=== PATIENT | female | born 1965 | race Caucasian/White ===

== ENCOUNTER 2023-12-04 07:36 | Inpatient (IN) | payer BC, OTHER ==
[~2023-12-04] VITALS: Ht 167.6 cm; Wt 90.0 kg
[2023-12-04 09:37] LABS: ALANINE AMINOTRANSFERASE 552 U/L (12-78); ALKALINE PHOSPHATASE 249 IU/L (46-116); AMYLASE 18 U/L (25-115); ASPARTATE AMINO TRANSFERASE 473 U/L (10-37); BILIRUBIN,TOTAL 6.4 MG/DL (0.1-1.0); BLOOD UREA NITROGEN 5 MG/DL (7-18); BUN/CREATININE RATIO 11.1 (10.0-20.0); CALCIUM 9.1 MG/DL (8.5-10.1); CHLORIDE 84 MMOL/L (99-107); CREATININE 0.45 MG/DL (0.40-0.90); ETHANOL 65 MG/DL (<10); GLUCOSE 106 MG/DL (70-104); LIPASE 41 U/L (16-77); eCRCL 124 ML/MIN; eGFR > 90 ML/MIN
[2023-12-04 09:44] LABS: ALBUMIN/GLOBULIN RATIO 0.8 (1.1-1.5); ANION GAP 11 (8-16); POTASSIUM 3.8 MMOL/L (3.5-5.1)
[2023-12-04 09:46] LABS: SODIUM 119 MMOL/L (135-145)
[2023-12-04 10:45] LABS: BASOPHILS % (AUTO) 0.4 % (0-1); EOSINOPHILS % (AUTO) 0.7 % (0-6); HEMATOCRIT 41.3 % (35.0-45.0); HEMOGLOBIN 14.4 g/dl (12.0-16.0); LYMPHOCYTES # (AUTO) 1.7 X10'3 (1.1-4.8); LYMPHOCYTES % (AUTO) 25.3 % (21-51); MEAN CORPUSCULAR HEMOGLOBIN 31.9 PG (27.0-31.0); MEAN CORPUSCULAR HGB CONC 34.8 g/dL (33.0-36.5); MEAN CORPUSCULAR VOLUME 91.6 FL (78-98); MEAN PLATELET VOLUME 8.1 FL (7.4-10.4); MONOCYTES # (AUTO) 0.6 X10'3 (0-0.9); MONOCYTES % (AUTO) 8.6 % (2-12); NEUTROPHILS # (AUTO) 4.3 X10'3 (1.8-7.7); PLATELET COUNT 166 X10'3 (140-440); RED BLOOD COUNT 4.51 X10'6 (4.20-5.60); RED CELL DISTRIBUTION WIDTH 13.3 % (11.5-14.5); WHITE BLOOD COUNT 6.7 X10'3 (4.5-11.0)
[2023-12-04 11:48] LABS: MAGNESIUM 1.6 MG/DL (1.5-2.4)
[2023-12-04] MEDS: LORazepam 2 mg/ml vial IV ONE (12:37)
[2023-12-04] MEDS: thiamine 100mg/ml 2ml inj. IV ONE (12:37)
[2023-12-04] MEDS: ondansetron/PF 4mg/2ml inj IV ONE (12:37)
[2023-12-04] MEDS: normal saline 1000ml 1,000 ML IV ONE (12:37)
[2023-12-04 12:46] LABS: BILIRUBIN,URINE NEGATIVE (Neg); CLARITY,URINE SLIGHTLY CLOUDY (Clear); COLOR,URINE YELLOW (Yellow); GLUCOSE, URINE NEGATIVE (Neg); KETONES,URINE NEGATIVE (Neg); LEUKOCYTE ESTERASE ,URINE NEGATIVE (Neg); NITRITES, URINE NEGATIVE (Neg); OCCULT BLOOD,URINE TRACE-INTACT (Neg); PROTEIN,URINE NEGATIVE (Neg); UROBILINOGEN,URINE 0.2 E.U/dL (0.2-1.0)
[2023-12-04 12:47] LABS: UA COLLECTION TYPE CLN CATCH MIDSTREAM
[2023-12-04 12:53] LABS: BACTERIA,URINE NONE SEEN /HPF (Neg); RBC,URINE 0-2 /HPF (0-2); SQUAMOUS EPITHELIAL CELL,UR FEW /LPF (FEW); WBC,URINE NONE SEEN /HPF (0-4)
[2023-12-04] MEDS: folic acid 1mg/0.2ml inj IV ONE (13:01)
[2023-12-04 13:09] LABS: APTT 29 SECONDS (22-32); INR 1.3 INR; PROTHROMBIN TIME 13.4 SECONDS (9.0-12.0)
[2023-12-04] MEDS ORDERED: haloperidol lactate 5mg/ml inj IM PRN (13:45)
[2023-12-04] MEDS ORDERED: magnesium 2GM in 50ml NS 50 ML IV PRN (13:45)
[2023-12-04] MEDS ORDERED: haloperidol 5mg tablet PO PRN (13:45)
[2023-12-04] MEDS ORDERED: magnesium 4gm in 100ml NS 100 ML IV PRN (13:45)
[2023-12-04] MEDS ORDERED: magnesium hydroxide 30ml (MOM) UD suspension PO PRN (13:45)
[2023-12-04] MEDS ORDERED: acetaminophen 325mg tablet PO PRN (13:45)
[2023-12-04] MEDS ORDERED: potassium Cl 40MEQ/1/2NS 520ml 520 ML IV PRN (13:45)
[2023-12-04] MEDS ORDERED: potassium Cl 20 mEq SR tablet PO PRN ×2 (13:45)
[2023-12-04] MEDS ORDERED: ondansetron/PF 4mg/2ml inj IV PRN (13:45)
[2023-12-04] MEDS ORDERED: mag hydrox/Alum hydrox/simeth 30ml oral suspension PO PRN (13:45)
[2023-12-04] MEDS ORDERED: HYDROcodone/acetaminophen 5mg/325mg tablet PO PRN (13:45)
[2023-12-04] MEDS ORDERED: morphine 2 MG/ML inj. syringe IV PRN ×2 (13:45)
[2023-12-04 15:48] LABS: ALBUMIN 2.9 G/DL (3.4-5.0); ANION GAP 12 (8-16); BLOOD UREA NITROGEN 4 MG/DL (7-18); BUN/CREATININE RATIO 7.1 (10.0-20.0); CALCIUM 8.3 MG/DL (8.5-10.1); CHLORIDE 86 MMOL/L (99-107); CREATININE 0.56 MG/DL (0.40-0.90); GLUCOSE 112 MG/DL (70-104); TOTAL CARBON DIOXIDE 21.5 MMOL/L (24-32); eCRCL 100 ML/MIN; eGFR > 90 ML/MIN
[2023-12-04 15:51] LABS: POTASSIUM 4.6 MMOL/L (3.5-5.1); SODIUM 119 MMOL/L (135-145)
[2023-12-04] MEDS: heparin, porcine 5000 units/ml vial SQ SCH (16:00)
[2023-12-04 17:15] VITALS: BP 127/70; PULSE 112; RESP 18; TEMP 98.2; O2SAT 94
[2023-12-04] MEDS: normal saline 1000ml 1,000 ML IV SCH (19:46)
[2023-12-04] MEDS: docusate sod 100mg capsule PO SCH (19:56)
[2023-12-04] MEDS: LORazepam 2 mg/ml vial IV PRN (19:59)
[2023-12-04 20:00] VITALS: RESP 16; O2SAT 98
[2023-12-04] MEDS: thiamine 100mg tablet PO SCH (20:00)
[2023-12-04] MEDS: K and/or MAG REPLACEMENT MC SCH (20:00)
[2023-12-04 22:00] VITALS: BP 114/59; PULSE 102; RESP 15; TEMP 97.9; O2SAT 98
[2023-12-05] MEDS ORDERED: TELM40TA8 PO (02:44)
[2023-12-05 06:00] VITALS: BP 149/79; PULSE 97; RESP 15; TEMP 97.9; O2SAT 98
[2023-12-05 06:52] LABS: BASOPHILS % (AUTO) 0.8 % (0-1); EOSINOPHILS # (AUTO) 0.1 X10'3 (0-0.9); EOSINOPHILS % (AUTO) 2.1 % (0-6); HEMATOCRIT 33.3 % (35.0-45.0); HEMOGLOBIN 11.8 g/dl (12.0-16.0); LYMPHOCYTES # (AUTO) 1.5 X10'3 (1.1-4.8); LYMPHOCYTES % (AUTO) 30.1 % (21-51); MEAN CORPUSCULAR HEMOGLOBIN 32.5 PG (27.0-31.0); MEAN CORPUSCULAR HGB CONC 35.3 g/dL (33.0-36.5); MEAN PLATELET VOLUME 7.8 FL (7.4-10.4); MONOCYTES # (AUTO) 0.4 X10'3 (0-0.9); MONOCYTES % (AUTO) 9.2 % (2-12); NEUTROPHILS # (AUTO) 2.8 X10'3 (1.8-7.7); NEUTROPHILS % (AUTO) 57.8 % (42-75); PLATELET COUNT 132 X10'3 (140-440); RED BLOOD COUNT 3.62 X10'6 (4.20-5.60); RED CELL DISTRIBUTION WIDTH 13.5 % (11.5-14.5); WHITE BLOOD COUNT 4.8 X10'3 (4.5-11.0)
[2023-12-05 06:56] LABS: INR 1.2 INR; PROTHROMBIN TIME 13.1 SECONDS (9.0-12.0)
[2023-12-05 07:06] LABS: ALANINE AMINOTRANSFERASE 340 U/L (12-78); ALBUMIN 2.3 G/DL (3.4-5.0); ALKALINE PHOSPHATASE 199 IU/L (46-116); ANION GAP 6 (8-16); ASPARTATE AMINO TRANSFERASE 292 U/L (10-37); BILIRUBIN,TOTAL 6.2 MG/DL (0.1-1.0); BLOOD UREA NITROGEN 5 MG/DL (7-18); BUN/CREATININE RATIO 9.4 (10.0-20.0); CALCIUM 7.6 MG/DL (8.5-10.1); CHLORIDE 93 MMOL/L (99-107); CREATININE 0.53 MG/DL (0.40-0.90); GLUCOSE 102 MG/DL (70-104); LIPASE 50 U/L (16-77); MAGNESIUM 1.6 MG/DL (1.5-2.4); POTASSIUM 3.7 MMOL/L (3.5-5.1); SODIUM 125 MMOL/L (135-145); TOTAL CARBON DIOXIDE 25.9 MMOL/L (24-32); eCRCL 106 ML/MIN; eGFR > 90 ML/MIN
[2023-12-05 07:10] LABS: ALBUMIN/GLOBULIN RATIO 0.7 (1.1-1.5); PHOSPHORUS 3.7 MG/DL (2.3-4.5); TOTAL PROTEIN 5.5 G/DL (6.4-8.2)
[2023-12-05 10:00] VITALS: BP 123/75; PULSE 100; RESP 18; TEMP 97.9; O2SAT 95
[2023-12-05 15:58] LABS: ALBUMIN 2.5 G/DL (3.4-5.0); ANION GAP 5 (8-16); BLOOD UREA NITROGEN 3 MG/DL (7-18); CALCIUM 7.6 MG/DL (8.5-10.1); CHLORIDE 91 MMOL/L (99-107); GLUCOSE 100 MG/DL (70-104); TOTAL CARBON DIOXIDE 24.3 MMOL/L (24-32); eCRCL 112 ML/MIN; eGFR > 90 ML/MIN
[2023-12-05 16:05] LABS: POTASSIUM 4.1 MMOL/L (3.5-5.1)
[2023-12-05 16:07] LABS: SODIUM 120 MMOL/L (135-145)
[2023-12-05] MEDS ORDERED: sodium chloride 3% IV.soln 100 ML IV SCH ×2 (17:10→18:00)
[2023-12-05] MEDS ORDERED: sodium chloride 3% IV.soln 150 ML IV SCH (17:27)
[2023-12-05 18:00] VITALS: BP 130/79; PULSE 94; RESP 16; TEMP 97.7; O2SAT 99
[2023-12-05 20:00] VITALS: RESP 16; O2SAT 100
[2023-12-05 22:00] VITALS: BP 131/75; PULSE 96; RESP 16; TEMP 98; O2SAT 97
[2023-12-05 23:39] VITALS: BP 134/78; PULSE 87; RESP 20; O2SAT 100
[2023-12-06] VITALS (22 sets, daily range): BP systolic 106–147; BP diastolic 63–93; PULSE 76–118; RESP 12–25; TEMP 97.9; O2SAT 94–99
[2023-12-06] MEDS: sodium chloride 3% IV.soln 100 ML IV SCH (00:11)
[2023-12-06 00:43] LABS: ALANINE AMINOTRANSFERASE 312 U/L (12-78); ALBUMIN 2.7 G/DL (3.4-5.0); ALKALINE PHOSPHATASE 223 IU/L (46-116); ANION GAP 5 (8-16); ASPARTATE AMINO TRANSFERASE 248 U/L (10-37); BILIRUBIN,TOTAL 5.2 MG/DL (0.1-1.0); BLOOD UREA NITROGEN 4 MG/DL (7-18); BUN/CREATININE RATIO 7.8 (10.0-20.0); CALCIUM 7.8 MG/DL (8.5-10.1); CHLORIDE 89 MMOL/L (99-107); CREATININE 0.51 MG/DL (0.40-0.90); GLUCOSE 97 MG/DL (70-104); POTASSIUM 3.6 MMOL/L (3.5-5.1); TOTAL CARBON DIOXIDE 26.1 MMOL/L (24-32); eCRCL 110 ML/MIN; eGFR > 90 ML/MIN
[2023-12-06 00:44] LABS: ALBUMIN/GLOBULIN RATIO 0.8 (1.1-1.5); TOTAL PROTEIN 6.3 G/DL (6.4-8.2)
[2023-12-06 00:55] LABS: SODIUM 120 MMOL/L (135-145)
[2023-12-06 05:49] LABS: BASOPHILS # (AUTO) 0.1 X10'3 (0-0.2); BASOPHILS % (AUTO) 1.8 % (0-1); EOSINOPHILS # (AUTO) 0.2 X10'3 (0-0.9); EOSINOPHILS % (AUTO) 5.1 % (0-6); HEMATOCRIT 32.1 % (35.0-45.0); HEMOGLOBIN 11.1 g/dl (12.0-16.0); LYMPHOCYTES # (AUTO) 1.5 X10'3 (1.1-4.8); LYMPHOCYTES % (AUTO) 36.4 % (21-51); MEAN CORPUSCULAR HGB CONC 34.7 g/dL (33.0-36.5); MEAN CORPUSCULAR VOLUME 92.1 FL (78-98); MEAN PLATELET VOLUME 7.6 FL (7.4-10.4); MONOCYTES # (AUTO) 0.4 X10'3 (0-0.9); NEUTROPHILS % (AUTO) 47.7 % (42-75); PLATELET COUNT 119 X10'3 (140-440); RED BLOOD COUNT 3.48 X10'6 (4.20-5.60); RED CELL DISTRIBUTION WIDTH 13.7 % (11.5-14.5); WHITE BLOOD COUNT 4.1 X10'3 (4.5-11.0)
[2023-12-06 05:51] LABS: INR 1.2 INR; PROTHROMBIN TIME 12.4 SECONDS (9.0-12.0)
[2023-12-06 05:57] LABS: ALANINE AMINOTRANSFERASE 280 U/L (12-78); ALBUMIN 2.5 G/DL (3.4-5.0); ALKALINE PHOSPHATASE 191 IU/L (46-116); ANION GAP 7 (8-16); ASPARTATE AMINO TRANSFERASE 225 U/L (10-37); BILIRUBIN,TOTAL 4.1 MG/DL (0.1-1.0); BLOOD UREA NITROGEN 4 MG/DL (7-18); BUN/CREATININE RATIO 7.8 (10.0-20.0); CHLORIDE 98 MMOL/L (99-107); CREATININE 0.51 MG/DL (0.40-0.90); GLUCOSE 98 MG/DL (70-104); LIPASE 36 U/L (16-77); MAGNESIUM 1.8 MG/DL (1.5-2.4); POTASSIUM 3.8 MMOL/L (3.5-5.1); SODIUM 130 MMOL/L (135-145); eCRCL 110 ML/MIN; eGFR > 90 ML/MIN
[2023-12-06 06:03] LABS: ALBUMIN/GLOBULIN RATIO 0.7 (1.1-1.5); PHOSPHORUS 4.1 MG/DL (2.3-4.5); TOTAL PROTEIN 5.9 G/DL (6.4-8.2)
[2023-12-06] MEDS: desmopressin 4 MCG/1 ML amp IV ONE (06:25)
[2023-12-06] MEDS: dextrose 5%-water 1,000 ML IV SCH (06:25)
[2023-12-06 09:14] LABS: THYROID STIMULATING HORMONE 3.85 ulU/ml (0.34-4.50)
[2023-12-06] MEDS: multivitamins, therapeutics tablet PO SCH (11:23)
[2023-12-06] MEDS: folic acid 1mg tablet PO SCH (11:23)
[2023-12-06 11:49] LABS: ALBUMIN 2.4 G/DL (3.4-5.0); ANION GAP 9 (8-16); BLOOD UREA NITROGEN 4 MG/DL (7-18); BUN/CREATININE RATIO 6.3 (10.0-20.0); CHLORIDE 94 MMOL/L (99-107); CREATININE 0.64 MG/DL (0.40-0.90); GLUCOSE 153 MG/DL (70-104); HDL CHOLESTEROL 14 MG/DL (35-60); LDL CHOLESTEROL 89 MG/DL (50-100); SODIUM 126 MMOL/L (135-145); TOTAL CARBON DIOXIDE 23.1 MMOL/L (24-32); eCRCL 88 ML/MIN; eGFR > 90 ML/MIN
[2023-12-06 12:40] LABS: CHOL/HDL RATIO 10.4 (0.00-4.99); CHOLESTEROL 146 MG/DL (0-200); TRIGLYCERIDES 213 MG/DL (20-135)
[2023-12-06] MEDS ORDERED: LORazepam 2 mg/ml vial IV PRN (13:45)
[2023-12-06] MEDS ORDERED: MULT-1085 PO (17:07)
[2023-12-06] MEDS ORDERED: MELA5TAB66 PO (17:07)
[2023-12-06] MEDS ORDERED: VITA1CAP PO (17:07)
[2023-12-06] MEDS ORDERED: CHOL500044 PO (17:07)
[2023-12-06] MEDS ORDERED: FLUT16SP2 BOTHNARES (17:07)
[2023-12-06] MEDS ORDERED: BUDE10.2 PO (17:07)
[2023-12-06 18:27] LABS: ALBUMIN 2.9 G/DL (3.4-5.0); ANION GAP 9 (8-16); BLOOD UREA NITROGEN 7 MG/DL (7-18); BUN/CREATININE RATIO 11.7 (10.0-20.0); CALCIUM 8.3 MG/DL (8.5-10.1); CHLORIDE 90 MMOL/L (99-107); GLUCOSE 116 MG/DL (70-104); POTASSIUM 4.1 MMOL/L (3.5-5.1); SODIUM 124 MMOL/L (135-145); TOTAL CARBON DIOXIDE 25.2 MMOL/L (24-32); eCRCL 93 ML/MIN; eGFR > 90 ML/MIN
[2023-12-07] VITALS (9 sets, daily range): BP systolic 140–146; BP diastolic 78–88; PULSE 83–103; RESP 12–18; TEMP 97.8–98.9; O2SAT 94–99
[2023-12-07] MEDS: normal saline 1000ml 1,000 ML IV ONE (00:46)
[2023-12-07] MEDS: LORazepam 1 MG tablet PO PRN (00:53)
[2023-12-07 06:34] LABS: BASOPHILS % (AUTO) 0.7 % (0-1); EOSINOPHILS # (AUTO) 0.2 X10'3 (0-0.9); EOSINOPHILS % (AUTO) 2.9 % (0-6); HEMATOCRIT 30.2 % (35.0-45.0); HEMOGLOBIN 10.8 g/dl (12.0-16.0); LYMPHOCYTES # (AUTO) 1.7 X10'3 (1.1-4.8); LYMPHOCYTES % (AUTO) 31.4 % (21-51); MEAN CORPUSCULAR HEMOGLOBIN 32.7 PG (27.0-31.0); MEAN CORPUSCULAR HGB CONC 35.7 g/dL (33.0-36.5); MEAN CORPUSCULAR VOLUME 91.5 FL (78-98); MEAN PLATELET VOLUME 7.8 FL (7.4-10.4); MONOCYTES # (AUTO) 0.4 X10'3 (0-0.9); MONOCYTES % (AUTO) 7.7 % (2-12); NEUTROPHILS # (AUTO) 3.1 X10'3 (1.8-7.7); NEUTROPHILS % (AUTO) 57.3 % (42-75); PLATELET COUNT 105 X10'3 (140-440); RED CELL DISTRIBUTION WIDTH 13.2 % (11.5-14.5); WHITE BLOOD COUNT 5.4 X10'3 (4.5-11.0)
[2023-12-07 07:07] LABS: ALANINE AMINOTRANSFERASE 217 U/L (12-78); ALBUMIN 2.5 G/DL (3.4-5.0); ALBUMIN/GLOBULIN RATIO 0.7 (1.1-1.5); ALKALINE PHOSPHATASE 175 IU/L (46-116); ANION GAP 7 (8-16); ASPARTATE AMINO TRANSFERASE 144 U/L (10-37); BILIRUBIN,TOTAL 3.1 MG/DL (0.1-1.0); BLOOD UREA NITROGEN 5 MG/DL (7-18); BUN/CREATININE RATIO 11.6 (10.0-20.0); CALCIUM 7.6 MG/DL (8.5-10.1); CHLORIDE 88 MMOL/L (99-107); CREATININE 0.43 MG/DL (0.40-0.90); GLUCOSE 97 MG/DL (70-104); LIPASE 45 U/L (16-77); MAGNESIUM 1.5 MG/DL (1.5-2.4); PHOSPHORUS 3.5 MG/DL (2.3-4.5); POTASSIUM 3.7 MMOL/L (3.5-5.1); TOTAL CARBON DIOXIDE 22.7 MMOL/L (24-32); eCRCL 130 ML/MIN; eGFR > 90 ML/MIN
[2023-12-07 07:09] LABS: INR 1.1 INR; PROTHROMBIN TIME 11.9 SECONDS (9.0-12.0)
[2023-12-07 07:10] LABS: SODIUM 118 MMOL/L (135-145)
[2023-12-07] MEDS: normal saline 1000ml 1,000 ML IV SCH (07:40)
[2023-12-07] MEDS: furosemide 40mg/4ml inj IV ONE (09:07)
[2023-12-07] MEDS: budesonide 0.5mg/2ml UD nebule IH SCH (12:44)
[2023-12-07] MEDS: albuterol 2.5 MG/3 ML nebule NEB PRN (12:45)
[2023-12-08 02:00] VITALS: BP 133/77; PULSE 83; RESP 16; TEMP 98.2; O2SAT 86
[2023-12-08 05:45] LABS: BASOPHILS % (AUTO) 0.6 % (0-1); EOSINOPHILS # (AUTO) 0.1 X10'3 (0-0.9); EOSINOPHILS % (AUTO) 2.1 % (0-6); HEMATOCRIT 32.1 % (35.0-45.0); HEMOGLOBIN 11.1 g/dl (12.0-16.0); LYMPHOCYTES # (AUTO) 1.8 X10'3 (1.1-4.8); LYMPHOCYTES % (AUTO) 29.8 % (21-51); MEAN CORPUSCULAR HEMOGLOBIN 32.1 PG (27.0-31.0); MEAN CORPUSCULAR HGB CONC 34.7 g/dL (33.0-36.5); MEAN CORPUSCULAR VOLUME 92.7 FL (78-98); MEAN PLATELET VOLUME 7.9 FL (7.4-10.4); MONOCYTES # (AUTO) 0.4 X10'3 (0-0.9); MONOCYTES % (AUTO) 7.1 % (2-12); NEUTROPHILS # (AUTO) 3.5 X10'3 (1.8-7.7); NEUTROPHILS % (AUTO) 60.4 % (42-75); PLATELET COUNT 149 X10'3 (140-440); RED BLOOD COUNT 3.46 X10'6 (4.20-5.60); RED CELL DISTRIBUTION WIDTH 13.6 % (11.5-14.5); WHITE BLOOD COUNT 5.9 X10'3 (4.5-11.0)
[2023-12-08 05:58] LABS: PROTHROMBIN TIME 11.2 SECONDS (9.0-12.0)
[2023-12-08 06:00] VITALS: BP 153/86; PULSE 81; RESP 22; TEMP 98.3; O2SAT 96
[2023-12-08 06:12] LABS: ALANINE AMINOTRANSFERASE 186 U/L (12-78); ALBUMIN 2.6 G/DL (3.4-5.0); ALBUMIN/GLOBULIN RATIO 0.7 (1.1-1.5); ALKALINE PHOSPHATASE 163 IU/L (46-116); ANION GAP 7 (8-16); ASPARTATE AMINO TRANSFERASE 115 U/L (10-37); BILIRUBIN,TOTAL 2.2 MG/DL (0.1-1.0); BLOOD UREA NITROGEN 4 MG/DL (7-18); BUN/CREATININE RATIO 7.7 (10.0-20.0); CALCIUM 8.6 MG/DL (8.5-10.1); CHLORIDE 100 MMOL/L (99-107); CREATININE 0.52 MG/DL (0.40-0.90); GLUCOSE 94 MG/DL (70-104); LIPASE 57 U/L (16-77); PHOSPHORUS 4.9 MG/DL (2.3-4.5); SODIUM 134 MMOL/L (135-145); TOTAL CARBON DIOXIDE 26.7 MMOL/L (24-32); TOTAL PROTEIN 6.5 G/DL (6.4-8.2); eCRCL 108 ML/MIN; eGFR > 90 ML/MIN
[2023-12-08] MEDS: pneumococcal 23-VAL P-sac vacc 25 mcg/0.5ml vial IMVAC ONE (07:17)
[2023-12-08 07:24] VITALS: RESP 22; O2SAT 96
[2023-12-08 12:31] LABS: GAMMA GLUTAMLY TRANSPEPTIDASE 1459 IU/L (0-60)
[2023-12-08] MEDS ORDERED: LORazepam 1 MG tablet PO PRN (13:45)
[2023-12-08] MEDS ORDERED: LORazepam 2 mg/ml vial IV PRN (13:45)
[2023-12-08 17:57] LABS: HBSAG SCREEN Negative (Negative); HEPATITIS C VIRUS ANTIBODY Non Reactive (Non Reactive)
== END 2023-12-08 11:16 | disposition home or self-care (01) | DRG 433 ==
LOC: ER 07:38 → ED HOLD 13:50 → ORTHO 4S 17:20 → CICU 2S 12-05 23:20 → PCU 3S 12-06 19:22
PROVIDERS: ADMIT Family Medicine; ATTEND Family Medicine
DX: K70.10 Alcoholic hepatitis without ascites (principal); E87.1 Hypo-osmolality and hyponatremia; F10.939 Alcohol use, unspecified with withdrawal, unspecified; E11.9 Type 2 diabetes mellitus without complications; I10 Essential (primary) hypertension; E88.89 Other specified metabolic disorders; K76.9 Liver disease, unspecified; J45.909 Unspecified asthma, uncomplicated; Z80.1 Family history of malignant neoplasm of trachea, bronchus and lung; Y90.3 Blood alcohol level of 60-79 mg/100 ml; Z88.8 Allergy status to other drugs, medicaments and biological substances; Z88.1 Allergy status to other antibiotic agents; Z88.2 Allergy status to sulfonamides; Z88.0 Allergy status to penicillin; Z80.51 Family history of malignant neoplasm of kidney; Z90.710 Acquired absence of both cervix and uterus
CPT/HCPCS: 36415; 74176; 76700; 80048; 80053; 80061; 80320; 81001; 82103; 82140; 82150; 82570; 82948; 82977; 83690; 83735; 83930; 83935; 84100; 84295; 84300; 84443; 85025; 85610; 85730; 86803; 87081; 87340; 87522; 90732; 94640; 94760; 96374; 96375; 99285; G0378; J1940; J2060; J2405; J2597; J3411; J3490; J7030; J7070; J7131

== ENCOUNTER 2024-01-07 07:26 | Outpatient (CLI) | payer OTHER ==
[~2024-01-07 07:26] MED LIST: BUDE10.2 PO; CHOL500044 PO; FLUT16SP2 BOTHNARES; MELA5TAB66 PO; MULT-1085 PO; TELM40TA8 PO; VITA1CAP PO
[2024-01-07] MEDS ORDERED: GADOTERATE MEGLUMINE 7.5 MMOL/15 ML VIAL IV ONE (08:36)
== END 2024-01-07 23:59 | disposition home or self-care (01) ==
LOC: MRI 07:26
PROVIDERS: ATTEND Family Medicine
DX: K76.0 Fatty (change of) liver, not elsewhere classified (principal); F10.20 Alcohol dependence, uncomplicated; R74.8 Abnormal levels of other serum enzymes; R16.0 Hepatomegaly, not elsewhere classified; R77.2 Abnormality of alphafetoprotein
CPT/HCPCS: 74183; A9575